=== PATIENT | female | born 1990 | race African-American/Black ===

== ENCOUNTER 2018-12-30 21:44 | Emergency (ER) | payer OTHER ==
[~2018-12-30] VITALS: Ht 170.2 cm; Wt 61.7 kg
[2018-12-30] MEDS ORDERED: IV NS 0.9% 1,000 ML BAG IV ONE (22:30)
[2018-12-30 22:31] LABS: BASOPHILS % (AUTO) 0.4 % (0.0-2.0); EOSINOPHILS % (AUTO) 0.3 % (0.0-6.0); HEMATOCRIT 39 % (33-45); LYMPHOCYTES % (AUTO) 33.7 % (20.0-44.0); MEAN CORPUSCULAR HGB CONC 33 g/dl (31.0-36.0); MEAN CORPUSCULAR VOLUME 93 fL (82-100); MONOCYTES # (AUTO) 0.4 /CMM (0.1-1.30); MONOCYTES % (AUTO) 6.1 % (2.0-12.0); NEUTROPHILS # (AUTO) 3.5 /CMM (1.8-8.9); NEUTROPHILS % (AUTO) 59.5 % (43.0-81.0); PLATELET COUNT (AUTO) 262 /CMM (150-450); WHITE BLOOD COUNT (AUTO) 5.8 K/uL (4.3-11.0)
--- NOTE | 2018-12-30 22:37 | NUR ---
GRISEL PICKED OP OUTSIDE AN UBER CAR. TO ER BED 11. INTOXIXATED, ARROUSABLE. RESPONDS TO VERBAL AND TACTILE STIMULI. BROUGHT IN D/T PT VOMMITED SEVERAL TIMES BAG TURNER. UPON PRESENTATION PT HAS VOMMIT ALL OVER HER. PER EMS REPORT, PT GOT ZOFRAN 4MG ON SCENE, BAG TURNER. NO ACTIVE VOMMITING UPON ARRIVAL. MD WAS AT BEDSIDE. ORDERS RECEIVED NOTED AND CARRIED OUT. IV LINE ALREADY PRESENT ON L AC 18G BY EMS BAG TURNER. BLOOD DRAWN BY LABTE[facility] AT BEDSIDE. WILL CONTINUE TO MONITOR
[2018-12-30 22:39] LABS: CALCIUM, SERUM 8.4 mg/dL (8.5-10.1); CREATININE 1.1 mg/dL (0.6-1.3)
[2018-12-30 22:45] LABS: ALBUMIN 4.1 g/dL (3.4-5.0); BILIRUBIN,DIRECT 0.1 mg/dL (0.0-0.2); BILIRUBIN,TOTAL 0.4 mg/dL (0.2-1.0); TOTAL PROTEIN, SERUM 7.2 g/dL (6.4-8.2)
[2018-12-30 22:46] LABS: SALICYLATE 0.5 mg/dL (2.8-20.0)
--- NOTE | 2018-12-31 01:06 | NUR ---
Patient discharged to home in stable condition. Written and verbal after care instructions given. Patient verbalizes understanding of instruction.IV removed. Catheter intact and site benign. Pressure and 4x4 applied to site. No bleeding noted. Pt ambulatory with a steady gait
[2018-12-31 01:07] VITALS: BP 127/82
== END 2018-12-31 01:07 | disposition home or self-care (01) ==
LOC: ER 21:46
DX: F10.129 Alcohol abuse with intoxication, unspecified (principal); R11.10 Vomiting, unspecified; Y90.8 Blood alcohol level of 240 mg/100 ml or more; Z88.1 Allergy status to other antibiotic agents
CPT/HCPCS: 36415; 80048; 80076; 80307; 80329; 84702; 85025; 96360; 99283; G0480; J7030